=== PATIENT | male | born 1990 | race Caucasian/White ===

== ENCOUNTER → 2024-07-13 15:57 | Outpatient (REF) | payer BC, SELFPAY ==
[2024-07-13 17:43] LABS: Urine Albumin Negative (Neg - Trace); Urine Bilirubin Negative (Negative); Urine Character Clear (Clear); Urine Color Yellow; Urine Glucose Negative (Negative); Urine Ketone Negative (Negative); Urine Leukocyte Negative (Negative); Urine Nitrite Negative (Negative); Urine Occult Blood Negative (Negative); Urine Urobilinogen Negative (Neg - 1+)
== END ==
LOC: HWRAD 15:57
PROVIDERS: ATTENDING PHYSICIAN Hospitalist
DX: R10.9 Unspecified abdominal pain (principal)
CPT/HCPCS: 74176; 81003